=== PATIENT | male | born 1970 | race Caucasian/White ===

== ENCOUNTER 2020-08-14 13:53 | Emergency (ER) | payer OTHER, SELFPAY ==
[2020-08-14] MEDS ORDERED: Morphine 4 MG/ML VIAL ONE (14:25)
[2020-08-14] MEDS ORDERED: Ondansetron ODT 4 MG TAB ONE (14:25)
== END 2020-08-14 14:58 | disposition home or self-care (01) ==
LOC: NAV ERS 13:53
DX: S52.571A Other intraarticular fracture of lower end of right radius, initial encounter for closed fracture (principal); S52.611A Displaced fracture of right ulna styloid process, initial encounter for closed fracture; E11.9 Type 2 diabetes mellitus without complications; Z87.891 Personal history of nicotine dependence; W18.30XA Fall on same level, unspecified, initial encounter
CPT/HCPCS: 29125; 96372; J2270; Q0162